=== PATIENT | female | born 1965 | race Caucasian/White ===

== ENCOUNTER 2021-04-28 09:24 | Emergency (ER) | payer OTHER | END 2021-04-28 13:25 | disposition home or self-care (01) | LOC: ERS 09:24 | DX: S32.019A Unspecified fracture of first lumbar vertebra, initial encounter for closed fracture (principal); S32.029A Unspecified fracture of second lumbar vertebra, initial encounter for closed fracture; S32.049A Unspecified fracture of fourth lumbar vertebra, initial encounter for closed fracture; S32.059A Unspecified fracture of fifth lumbar vertebra, initial encounter for closed fracture; I10 Essential (primary) hypertension; J44.9 Chronic obstructive pulmonary disease, unspecified; F17.210 Nicotine dependence, cigarettes, uncomplicated; Z85.038 Personal history of other malignant neoplasm of large intestine; W17.2XXA Fall into hole, initial encounter | CPT/HCPCS: 72131; 72192; 96372; J1885; J2270 ==

== ENCOUNTER 2022-01-11 13:34 | Emergency (ER) | payer OTHER ==
[2022-01-11 14:26] LABS: #Eosinphils 0.1 thou/uL (0.0-0.7); #Lymphocytes 1.7 thou/uL (1.20-3.40); #Monocytes 0.8 thou/uL (0.11-0.59); %Basophils 0.4 % (0.0-1.0); %Eosinophils 0.9 % (0.0-10.0); %Lymphocytes 13.1 % (21.0-51.0); %Monocytes 6.5 % (0.0-10.0); Hemoglobin 13.6 g/dL (12.0-16.0); Mean Corpuscular HGB CONC 32.8 g/dL (32.0-36.0); Mean Corpuscular Hemoglobin 34.4 pg (27.0-31.0); Mean Platelet Volume 5.7 fL (7.4-10.4); Platelet Count 363 thou/uL (130-400); RBC Distribution Width 12.2 % (11.5-14.5); Red Blood Cell (RBC) Count 3.94 mill/uL (4.20-5.40); White Blood Cell (WBC) Count 12.7 thou/uL (4.8-10.8)
[2022-01-11] MEDS ORDERED: Ketorolac Tromethamine 30 MG/ML VIAL ONE (14:41)
[2022-01-11] MEDS ORDERED: Ondansetron PF 4 MG/2 ML Vial ONE (14:41)
[2022-01-11 14:49] LABS: ALT (SGPT) 27 U/L (8-55); AST (SGOT) 17 U/L (5-34); Albumin 3.4 g/dL (3.5-5.0); Alkaline Phosphatase 59 U/L (40-110); Anion Gap 13 mmol/L (10-20); BUN (Urea Nitrogen) 15 mg/dL (9.8-20.1); Bilirubin, Total 0.2 mg/dL (0.2-1.2); Calc. Creatinine Clearance 0 mL/min (70-130); Calcium 8.3 mg/dL (7.8-10.44); Carbon Dioxide 22 mmol/L (22-29); Chloride 105 mmol/L (98-107); Globulin 3.5 g/dL (2.4-3.5); Glucose 132 mg/dL (70-105); Potassium 3.3 mmol/L (3.5-5.1); Protein, Total 6.9 g/dL (6.0-8.3); Sodium 137 mmol/L (136-145)
[2022-01-11] MEDS ORDERED: HYDROcodone/Acetaminophen 10/325 mg Tablet ONE (16:23)
== END 2022-01-11 17:15 | disposition home or self-care (01) ==
LOC: ERS 13:34
DX: S32.011A Stable burst fracture of first lumbar vertebra, initial encounter for closed fracture (principal); S00.81XA Abrasion of other part of head, initial encounter; S00.31XA Abrasion of nose, initial encounter; S40.212A Abrasion of left shoulder, initial encounter; L03.211 Cellulitis of face; L03.114 Cellulitis of left upper limb; I10 Essential (primary) hypertension; J44.9 Chronic obstructive pulmonary disease, unspecified; F17.210 Nicotine dependence, cigarettes, uncomplicated; Z79.51 Long term (current) use of inhaled steroids; Z79.899 Other long term (current) drug therapy; W10.9XXA Fall (on) (from) unspecified stairs and steps, initial encounter; Y92.039 Unspecified place in apartment as the place of occurrence of the external cause
CPT/HCPCS: 36415; 70450; 70486; 71045; 72131; 80053; 85025; 96374; 96375; J1885; J2405

== ENCOUNTER 2022-08-19 10:51 | Outpatient (CLI) | payer OTHER | END 2022-08-19 10:52 | disposition home or self-care (01) | LOC: BICMAMMO 10:51 | PROVIDERS: ATTEND Family Medicine | DX: Z12.31 Encounter for screening mammogram for malignant neoplasm of breast (principal); Z85.3 Personal history of malignant neoplasm of breast; Z85.41 Personal history of malignant neoplasm of cervix uteri; Z85.42 Personal history of malignant neoplasm of other parts of uterus; Z85.43 Personal history of malignant neoplasm of ovary; Z80.3 Family history of malignant neoplasm of breast; Z98.890 Other specified postprocedural states | CPT/HCPCS: 77067 ==

== ENCOUNTER 2023-10-22 15:01 | Outpatient (CLI) | payer OTHER | END 2023-10-22 15:02 | disposition home or self-care (01) | LOC: BICMAMMO 15:01 | PROVIDERS: ATTEND Family Medicine | DX: Z13.820 Encounter for screening for osteoporosis (principal); M81.0 Age-related osteoporosis without current pathological fracture | CPT/HCPCS: 77080 ==

== ENCOUNTER 2024-07-03 06:51 | Outpatient (CLI) | payer OTHER ==
[2024-07-03] MEDS ORDERED: Sodium Bicarbonate 0.5 MEQ/ML SDV 10 ML ONE (07:45)
[2024-07-03] MEDS ORDERED: Lidocaine 1% PF 5 ML VIAL ONE (07:45)
[2024-07-03] MEDS ORDERED: Iopamidol 370 76% 100 ML VIAL ONE (10:47)
== END 2024-07-03 06:52 | disposition home or self-care (01) ==
LOC: SPEC 06:51
PROVIDERS: ATTEND Internal Medicine Gastroenterology
DX: R93.3 Abnormal findings on diagnostic imaging of other parts of digestive tract (principal); R11.2 Nausea with vomiting, unspecified; R10.9 Unspecified abdominal pain; R19.4 Change in bowel habit
CPT/HCPCS: 36415; 36569; 74178; 76937; 77001; 82565; C1751; Q9967

== ENCOUNTER 2024-07-05 06:33 | Day surgery (SDC) | payer OTHER ==
[2024-07-04 11:16] VITALS: BMI 30.4
[2024-07-05] MEDS ORDERED: Benzocaine 20% Spray 60 ML CAN ONE (08:15)
[2024-07-05] MEDS ORDERED: PROPOFOL 200 MG/20 ML VIAL ONE (08:34)
== END 2024-07-05 09:20 | disposition home or self-care (01) ==
LOC: SDC 06:33
PROVIDERS: ATTEND Internal Medicine Gastroenterology
PROC: 0DB68ZX Excision of Stomach, Via Natural or Artificial Opening Endoscopic, Diagnostic (ICD-10-PCS; principal; 2024-07-05)
DX: K29.50 Unspecified chronic gastritis without bleeding (principal); K44.9 Diaphragmatic hernia without obstruction or gangrene; J44.9 Chronic obstructive pulmonary disease, unspecified; I10 Essential (primary) hypertension; Z85.43 Personal history of malignant neoplasm of ovary; Z90.710 Acquired absence of both cervix and uterus; Z90.49 Acquired absence of other specified parts of digestive tract; Z90.89 Acquired absence of other organs; Z85.3 Personal history of malignant neoplasm of breast; Z85.038 Personal history of other malignant neoplasm of large intestine; Z98.890 Other specified postprocedural states; Z90.11 Acquired absence of right breast and nipple; F17.200 Nicotine dependence, unspecified, uncomplicated; Z79.899 Other long term (current) drug therapy; Z91.030 Bee allergy status; Z91.038 Other insect allergy status
CPT/HCPCS: 88305; J2704

== ENCOUNTER 2024-07-17 13:35 | Outpatient (CLI) | payer OTHER | END 2024-07-17 13:36 | disposition home or self-care (01) | LOC: SCSMRI 13:35 | PROVIDERS: ATTEND Specialist | DX: R42 Dizziness and giddiness (principal); I67.82 Cerebral ischemia; R90.82 White matter disease, unspecified | CPT/HCPCS: 70553; 76376 ==

== ENCOUNTER 2024-09-13 05:54 | Day surgery (SDC) | payer OTHER ==
[2024-09-12 13:35] VITALS: BMI 28.3
[2024-09-13] MEDS ORDERED: Bupivacaine PF 0.5% 30 ML VIAL ONE (06:08)
[2024-09-13] MEDS ORDERED: EPINEPHrine 1 MG/ML VIAL ONE (06:08)
[2024-09-13] MEDS ORDERED: Thrombin 5000 UNITS/5 ML VIAL ONE (06:08)
[2024-09-13] MEDS ORDERED: PROPOFOL 20 ML ONE (06:18)
[2024-09-13] MEDS ORDERED: fentaNYL PF 100 MCG/2 ML SYRINGE ONE ×2 (06:18→09:32)
[2024-09-13] MEDS ORDERED: Lidocaine 1% PF 5 ML VIAL ONE (06:19)
[2024-09-13] MEDS ORDERED: Rocuronium Bromide 10 MG/ML (10ML VIAL) ONE (06:19)
[2024-09-13] MEDS ORDERED: Midazolam HCl 2 mg/2 ml Vial ONE ×2 (06:47→09:00)
[2024-09-13] MEDS ORDERED: CEFAZOLIN 2 GM VIAL ONE ×2 (06:47→13:30)
[2024-09-13] MEDS ORDERED: PHENYLEPHRINE-NS 100 MCG/ML 10 ML SYRINGE ONE (07:56)
[2024-09-13] MEDS ORDERED: Sterile Water 10 ML ONE (08:04)
[2024-09-13] MEDS ORDERED: Ondansetron PF 4 MG/2 ML Vial ONE (08:12)
[2024-09-13] MEDS ORDERED: Dexamethasone 20 MG/5 ML VIAL ONE (08:12)
[2024-09-13] MEDS ORDERED: SUGAMMADEX SODIUM 200 MG/2 ML VIAL ONE (08:36)
[2024-09-13] MEDS ORDERED: fentaNYL 50 mcg/mL 1 mL Vial ONE ×5 (08:48→12:49)
[2024-09-13] MEDS ORDERED: MINERAL OIL/WHITE PETROLATUM 3.5 GM TUBE ONE (08:49)
[2024-09-13] MEDS ORDERED: HYDROmorphone 2 MG/ML VIAL ONE (08:56)
[2024-09-13] MEDS ORDERED: oxyCODONE 5 MG TAB ONE (09:15)
[2024-09-13] MEDS ORDERED: Midazolam HCl 2 mg/ml Syrup 5 ml UD Cup ONE (09:17)
[2024-09-13] MEDS ORDERED: Sodium Chloride 0.9% 100 ML ONE (13:30)
== END 2024-09-13 14:42 | disposition home or self-care (01) ==
LOC: SDC 05:54
PROVIDERS: ATTEND Neurological Surgery
PROC: 01NB0ZZ Release Lumbar Nerve, Open Approach (ICD-10-PCS; principal; 2024-09-13)
DX: M54.16 Radiculopathy, lumbar region (principal); I10 Essential (primary) hypertension; J44.9 Chronic obstructive pulmonary disease, unspecified; F17.200 Nicotine dependence, unspecified, uncomplicated; Z85.038 Personal history of other malignant neoplasm of large intestine; Z90.710 Acquired absence of both cervix and uterus; Z90.49 Acquired absence of other specified parts of digestive tract; Z91.048 Other nonmedicinal substance allergy status; Z88.8 Allergy status to other drugs, medicaments and biological substances; Z79.51 Long term (current) use of inhaled steroids; Z79.899 Other long term (current) drug therapy
CPT/HCPCS: J0171; J0665; J1100; J2250; J2405; J2704; J3010

== ENCOUNTER 2024-09-20 12:38 | Outpatient (CLI) | payer OTHER | END 2024-09-20 12:39 | disposition home or self-care (01) | LOC: BICMAMMO 12:38 | PROVIDERS: ATTEND Family Medicine | DX: Z12.31 Encounter for screening mammogram for malignant neoplasm of breast (principal); Z80.3 Family history of malignant neoplasm of breast; Z85.3 Personal history of malignant neoplasm of breast; Z85.41 Personal history of malignant neoplasm of cervix uteri; Z85.42 Personal history of malignant neoplasm of other parts of uterus; Z85.43 Personal history of malignant neoplasm of ovary; Z98.890 Other specified postprocedural states | CPT/HCPCS: 77067 ==

== ENCOUNTER 2024-10-15 11:04 | Inpatient (IN) | payer OTHER ==
[2024-10-15 11:41] LABS: #Basophils 0.04 10x3/uL (0.0-0.2); #Eosinophils Less than 0.03 10x3/uL (0.0-0.7); %Basophils 0.2 % (0.0-1.0); %Lymphocytes 2.2 % (21.0-51.0); %Monocytes 2.1 % (0.0-10.0); %Neutrophils 94.6 % (42.0-75.0); Hematocrit 44.8 % (36.0-47.0); Hemoglobin 15.9 g/dL (12.0-16.0); Mean Corpuscular HGB CONC 35.5 g/dL (32.0-36.0); Mean Corpuscular Hemoglobin 35.2 pg (27.0-31.0); Mean Corpuscular Volume 99.1 fL (78.0-98.0); Mean Platelet Volume 8.9 fL (7.4-10.4); Platelet Count 306 10x3/uL (130-400); RBC Distribution Width 12.3 % (11.5-14.5); Red Blood Cell (RBC) Count 4.52 mill/uL (4.20-5.40)
[2024-10-15 11:54] LABS: ALT (SGPT) 10 U/L (8-55); AST (SGOT) 20 U/L (5-34); Albumin 3.5 g/dL (3.4-4.8); Alkaline Phosphatase 78 U/L (40-110); Anion Gap 20 mmol/L (10-20); BUN (Urea Nitrogen) 88 mg/dL (9.8-20.1); Bilirubin, Total 0.4 mg/dL (0.2-1.2); Calc. Creatinine Clearance 0 mL/min (70-130); Carbon Dioxide 28 mmol/L (23-31); Chloride 92 mmol/L (98-107); Estimated GFR 12; Globulin 5.8 g/dL (2.4-3.5); Glucose 179 mg/dL (80-115); Lipase 129 U/L (8-78); Potassium 3.5 mmol/L (3.5-5.1); Protein, Total 9.3 g/dL (5.8-8.1); Sodium 136 mmol/L (136-145)
[2024-10-15] MEDS ORDERED: Morphine 4 MG/ML VIAL ONE (12:00)
[2024-10-15] MEDS ORDERED: Ondansetron PF 4 MG/2 ML Vial ONE ×3 (12:00→13:37)
[2024-10-15] MEDS ORDERED: Sodium Chloride 0.9% 100 ML ONE (13:08)
[2024-10-15] MEDS ORDERED: Piperacillin/Tazobactam 3.375 GM VIAL ONE (13:09)
[2024-10-15] MEDS ORDERED: Morphine 2 MG/ML VIAL ONE (13:36)
[2024-10-15] MEDS ORDERED: Lidocaine 2% PF 5 ML VIAL ONE (13:37)
[2024-10-15] MEDS ORDERED: Dexamethasone 4 mg/ml Vial ONE (13:37)
[2024-10-15] MEDS ORDERED: Rocuronium Bromide 10 MG/ML (10ML VIAL) ONE ×2 (13:37→15:52)
[2024-10-15] MEDS ORDERED: SUCCINYLCHOLINE/SOD CL,ISO/PF 200 MG/10 ML SYRINGE FS ONE ×2 (13:37→15:52)
[2024-10-15] MEDS ORDERED: PROPOFOL 20 ML ONE (13:38)
[2024-10-15] MEDS ORDERED: Fentanyl 250 MCG/5 ML VIAL ONE (13:38)
[2024-10-15] MEDS ORDERED: Morphine 2 MG/ML VIAL SLOW IVP PRN ×2 (13:46→17:45)
[2024-10-15] MEDS ORDERED: Ondansetron PF 4 MG/2 ML Vial IVP PRN (13:46)
[2024-10-15] MEDS ORDERED: Lactated Ringer's 1,000 ML IV SCH (14:00)
[2024-10-15] MEDS ORDERED: Vancomycin (BATCH) 1.25 GM in Premix 1 BAG IVPB SCH (14:00)
[2024-10-15] MEDS ORDERED: Vancomycin (BATCH) 1.25 GM/250 ML BAG ONE (14:35)
[2024-10-15] MEDS ORDERED: Albumin 5% 500 ML ONE (14:44)
[2024-10-15] MEDS ORDERED: Lidocaine 1% MPF 2 ML VIAL ONE (14:51)
[2024-10-15] MEDS ORDERED: KETAMINE 100 MG/ML (5ML VIAL) ONE (16:03)
[2024-10-15] MEDS ORDERED: EPINEPHrine 1 MG/ML VIAL ONE (16:07)
[2024-10-15] MEDS ORDERED: Heparin 10,000 UNITS/ 10 ML VIAL ONE (16:07)
[2024-10-15] MEDS ORDERED: Bupivacaine 0.25% HCL 30 ML VIAL ONE (16:08)
[2024-10-15] MEDS ORDERED: Midazolam HCl 2 mg/2 ml Vial ONE (16:13)
[2024-10-15] MEDS ORDERED: Vasopressin 20 UNITS/ML VIAL ONE (16:15)
[2024-10-15] MEDS ORDERED: PHENYLEPHRINE-NS 100 MCG/ML 10 ML SYRINGE ONE (16:23)
[2024-10-15] MEDS ORDERED: Piperacillin/Tazobactam 3.375 GM in Sodium Chloride 0.9% 100 ML IVPB SCH (17:00)
[2024-10-15] MEDS ORDERED: ePHEDrine Sulfate 50 MG/10 ML VIAL ONE ×2 (17:12→17:13)
[2024-10-15] MEDS ORDERED: FENTANYL 500 MCG/10 ML VIAL 2,000 MCG in Sodium Chloride 0.9% 60 ML IV PRN (17:28)
[2024-10-15] MEDS ORDERED: Ventilator Sedation Protocol 1 EACH FS SCH (17:30)
[2024-10-15] MEDS ORDERED: Fentanyl BOLUS 250 ML IVPB PRN (17:45)
[2024-10-15] MEDS ORDERED: DISCONTINUE PREVIOUS NARCOTIC PAIN MEDICATIONS AND BENZODIAZEPINES FS SCH (17:45)
[2024-10-15] MEDS ORDERED: Lorazepam 2 MG/ML VIAL SLOW IVP PRN (17:45)
[2024-10-15] MEDS ORDERED: Propofol 1,000 MG/100 ML VIAL IV PRN (17:45)
[2024-10-15] MEDS ORDERED: Propofol BOLUS 1,000 MG/100 ML VIAL IV PRN (17:45)
[2024-10-15] MEDS: Sodium Chloride 0.9% 1,000 ML IV SCH (18:13)
[2024-10-15 18:24] LABS: Actual Bicarbonate (HCO3a) 22.1 mEq/L (22-28); Base Excess (BEa) -2.9 mEq/L (-2.0 to +3.0); CO2 Tension 39.5 mmHg (35.0-45.0); Calcium, Ionized (arterial) 0.99 mmol/L (1.12-1.30); Carboxyhemoglobin (COHb) 1.1 gm% (0.0-3.0); Hematocrit-ABG 39 % (36.0-47.0); Hemoglobin (Hb) 13.2 g/dL (12.0-16.0); O2 Tension (PaO2), arterial 71.6 mmHg (> 80.0); Potassium - ABG Lab 3.27 mmol/L (3.70-5.30); pH, Arterial 7.366 (7.35-7.45)
[2024-10-15] MEDS: Albumin 25% 25 GM (100 mL) BOT IVPB SCH (18:29)
[2024-10-15 18:30] LABS: ALV-art Gradient 235.525 mmHg (0-20); Puncture Site Left Brachial artery
[2024-10-15] MEDS ORDERED: Ipratropium/Albuterol 3 ML NEB NEB SCH (18:30)
[2024-10-15] MEDS: Ipratropium/Albuterol 3 ML NEB NEB SCH (18:32)
[2024-10-15] MEDS: Mometasone 200 MCG/Formoterol 5 MCG 120 PUFF INHALER INH SCH (18:32)
[2024-10-15] MEDS: Sodium Chloride 0.45% 1,000 ML IV SCH ×2 (19:25→20:19)
[2024-10-15] MEDS: Piperacillin/Tazobactam 3.375 GM in Sodium Chloride 0.9% 100 ML IVPB SCH (19:32)
[2024-10-15] MEDS ORDERED: Famotidine/PF 20 mg/2ml Vial SLOW IVP SCH (21:00)
[2024-10-15] MEDS ORDERED: Piperacillin/Tazobactam 2.25 GM in Sodium Chloride 0.9% 100 ML IVPB SCH (22:00)
[2024-10-15] MEDS: Fentanyl CADD 100 ML IV SCH (23:11)
[2024-10-16 05:27] LABS: #Basophils 0.03 10x3/uL (0.0-0.2); #Eosinophils Less than 0.03 10x3/uL (0.0-0.7); %Basophils 0.3 % (0.0-1.0); %Eosinophils 0.1 % (0.0-10.0); %Lymphocytes 5.8 % (21.0-51.0); %Monocytes 5.5 % (0.0-10.0); %Neutrophils 88.1 % (42.0-75.0); Hematocrit 33.4 % (36.0-47.0); Hemoglobin 11.3 g/dL (12.0-16.0); Mean Corpuscular HGB CONC 33.8 g/dL (32.0-36.0); Mean Corpuscular Hemoglobin 35.4 pg (27.0-31.0); Mean Corpuscular Volume 104.7 fL (78.0-98.0); Mean Platelet Volume 9.2 fL (7.4-10.4); Platelet Count 230 10x3/uL (130-400); RBC Distribution Width 12.4 % (11.5-14.5); Red Blood Cell (RBC) Count 3.19 mill/uL (4.20-5.40)
[2024-10-16 05:38] LABS: INR-International Normal Ratio 1.2; Prothrombin Time 14.8 sec (12.0-14.7)
[2024-10-16 05:39] LABS: PTT 31.5 sec (22.9-36.1)
[2024-10-16 05:50] LABS: Phosphorus 3.5 mg/dL (2.3-4.7)
[2024-10-16 05:54] LABS: Anion Gap 17 mmol/L (10-20); BUN (Urea Nitrogen) 60 mg/dL (9.8-20.1); Calc. Creatinine Clearance 24 mL/min (70-130); Calcium 7.6 mg/dL (7.8-10.44); Carbon Dioxide 23 mmol/L (23-31); Chloride 108 mmol/L (98-107); Estimated GFR 20; Glucose 130 mg/dL (80-115); Magnesium 2.3 mg/dL (1.6-2.6); Potassium 3.6 mmol/L (3.5-5.1); Sodium 144 mmol/L (136-145)
[2024-10-16] MEDS ORDERED: Heparin 5,000 UNITS/ML VIAL SC SCH (09:00)
[2024-10-16] MEDS: Enoxaparin 30 MG (0.3 mL) SYRINGE SC SCH (09:22)
[2024-10-16] MEDS ORDERED: Electrolyte Replacement Protocol 1 EACH FS ONE (15:31)
[2024-10-16 16:46] LABS: Anion Gap 14 mmol/L (10-20); BUN (Urea Nitrogen) 49 mg/dL (9.8-20.1); Calc. Creatinine Clearance 33 mL/min (70-130); Calcium 7.9 mg/dL (7.8-10.44); Carbon Dioxide 25 mmol/L (23-31); Chloride 107 mmol/L (98-107); Estimated GFR 29; Glucose 100 mg/dL (80-115); Potassium 3.1 mmol/L (3.5-5.1); Sodium 143 mmol/L (136-145)
[2024-10-16] MEDS: Morphine 2 MG/ML VIAL SLOW IVP PRN (16:46)
[2024-10-16] MEDS ORDERED: Electrolyte Replacement Protocol 1 EACH FS PRN (16:54)
[2024-10-16] MEDS: Potassium Chloride 20 MEQ in Premix 1 BAG IVPB SCH (17:12)
[2024-10-16] MEDS: Pantoprazole 40 MG DR.TAB PO SCH (22:32)
[2024-10-17 06:13] LABS: #Basophils Less than 0.03 10x3/uL (0.0-0.2); %Basophils 0.2 % (0.0-1.0); %Eosinophils 0.3 % (0.0-10.0); %Lymphocytes 9.6 % (21.0-51.0); %Monocytes 6.2 % (0.0-10.0); %Neutrophils 83.2 % (42.0-75.0); Hemoglobin 11.1 g/dL (12.0-16.0); Mean Corpuscular HGB CONC 34.7 g/dL (32.0-36.0); Mean Corpuscular Hemoglobin 35.6 pg (27.0-31.0); Mean Corpuscular Volume 102.6 fL (78.0-98.0); Platelet Count 188 10x3/uL (130-400); RBC Distribution Width 12.5 % (11.5-14.5); Red Blood Cell (RBC) Count 3.12 mill/uL (4.20-5.40)
[2024-10-17 06:45] LABS: ALT (SGPT) 8 U/L (8-55); AST (SGOT) 18 U/L (5-34); Albumin 3.2 g/dL (3.4-4.8); Alkaline Phosphatase 45 U/L (40-110); Anion Gap 12 mmol/L (10-20); BUN (Urea Nitrogen) 40 mg/dL (9.8-20.1); Bilirubin, Total 0.7 mg/dL (0.2-1.2); Calc. Creatinine Clearance 44 mL/min (70-130); Calcium 8.6 mg/dL (7.8-10.44); Carbon Dioxide 27 mmol/L (23-31); Chloride 106 mmol/L (98-107); Estimated GFR 40; Globulin 2.9 g/dL (2.4-3.5); Glucose 84 mg/dL (80-115); Magnesium 2.1 mg/dL (1.6-2.6); Phosphorus 2.1 mg/dL (2.3-4.7); Potassium 3.3 mmol/L (3.5-5.1); Protein, Total 6.1 g/dL (5.8-8.1); Sodium 142 mmol/L (136-145)
[2024-10-17] MEDS ORDERED: Potassium Chloride 20 MEQ TAB PO SCH (08:00)
[2024-10-17] MEDS: Potassium Chloride 20 MEQ in Premix 1 BAG IVPB SCH (09:25)
[2024-10-18 04:12] LABS: #Basophils 0.03 10x3/uL (0.0-0.2); %Basophils 0.3 % (0.0-1.0); %Eosinophils 0.6 % (0.0-10.0); %Monocytes 5.2 % (0.0-10.0); %Neutrophils 82.4 % (42.0-75.0); Hematocrit 33.2 % (36.0-47.0); Hemoglobin 11.5 g/dL (12.0-16.0); Mean Corpuscular HGB CONC 34.6 g/dL (32.0-36.0); Mean Corpuscular Hemoglobin 35.2 pg (27.0-31.0); Mean Corpuscular Volume 101.5 fL (78.0-98.0); Mean Platelet Volume 9.2 fL (7.4-10.4); Platelet Count 210 10x3/uL (130-400); RBC Distribution Width 12.3 % (11.5-14.5); Red Blood Cell (RBC) Count 3.27 mill/uL (4.20-5.40)
[2024-10-18 04:34] LABS: ALT (SGPT) 7 U/L (8-55); AST (SGOT) 18 U/L (5-34); Albumin 2.9 g/dL (3.4-4.8); Alkaline Phosphatase 62 U/L (40-110); Anion Gap 16 mmol/L (10-20); BUN (Urea Nitrogen) 29 mg/dL (9.8-20.1); Bilirubin, Total 0.8 mg/dL (0.2-1.2); Calc. Creatinine Clearance 57 mL/min (70-130); Calcium 8.9 mg/dL (7.8-10.44); Carbon Dioxide 23 mmol/L (23-31); Chloride 108 mmol/L (98-107); Estimated GFR 54; Globulin 3.4 g/dL (2.4-3.5); Glucose 74 mg/dL (80-115); Phosphorus 2.3 mg/dL (2.3-4.7); Potassium 3.2 mmol/L (3.5-5.1); Protein, Total 6.3 g/dL (5.8-8.1); Sodium 144 mmol/L (136-145)
[2024-10-18] MEDS: Potassium Chloride 20 MEQ TAB PO SCH (08:59)
[2024-10-18] MEDS: Magnesium 2 GM/50 ML(in water) 2 GM in Premix 1 BAG IVPB SCH (08:59)
[2024-10-18] MEDS: dilTIAZem CD 180 MG CAP PO SCH (09:02)
[2024-10-18] MEDS: Sodium Chloride 0.45% 1,000 ML IV SCH (13:06)
[2024-10-18] MEDS: Piperacillin/Tazobactam 3.375 GM in Sodium Chloride 0.9% 100 ML IVPB SCH (14:26)
[2024-10-19 07:21] LABS: #Basophils Less than 0.03 10x3/uL (0.0-0.2); %Basophils 0.2 % (0.0-1.0); %Eosinophils 1.2 % (0.0-10.0); %Lymphocytes 10.8 % (21.0-51.0); %Monocytes 5.7 % (0.0-10.0); %Neutrophils 80.6 % (42.0-75.0); Hematocrit 31.8 % (36.0-47.0); Hemoglobin 10.8 g/dL (12.0-16.0); Mean Corpuscular Hemoglobin 34.7 pg (27.0-31.0); Mean Corpuscular Volume 102.3 fL (78.0-98.0); Platelet Count 230 10x3/uL (130-400); RBC Distribution Width 12.5 % (11.5-14.5); Red Blood Cell (RBC) Count 3.11 mill/uL (4.20-5.40)
[2024-10-19 07:32] LABS: Anion Gap 16 mmol/L (10-20); BUN (Urea Nitrogen) 17 mg/dL (9.8-20.1); Calc. Creatinine Clearance 61 mL/min (70-130); Calcium 8.4 mg/dL (7.8-10.44); Carbon Dioxide 21 mmol/L (23-31); Chloride 108 mmol/L (98-107); Estimated GFR 63; Glucose 68 mg/dL (80-115); Potassium 3.2 mmol/L (3.5-5.1); Sodium 142 mmol/L (136-145)
[2024-10-19] MEDS: Enoxaparin 40 MG (0.4 mL) SYRINGE SC SCH (08:21)
[2024-10-19] MEDS: Potassium Chloride 20 MEQ TAB PO SCH (08:21)
[2024-10-19] MEDS: Lorazepam 2 MG/ML VIAL SLOW IVP SCH (09:04)
[2024-10-19] MEDS: Benzocaine/Menthol 1 LOZ LOZ PO PRN (13:48)
[2024-10-19 15:04] VITALS: BMI 28.5
[2024-10-20 03:43] LABS: Anion Gap 11 mmol/L (10-20); BUN (Urea Nitrogen) 11 mg/dL (9.8-20.1); Calc. Creatinine Clearance 64 mL/min (70-130); Carbon Dioxide 21 mmol/L (23-31); Chloride 111 mmol/L (98-107); Estimated GFR 66; Glucose 91 mg/dL (80-115); Potassium 3.2 mmol/L (3.5-5.1); Sodium 140 mmol/L (136-145)
[2024-10-20] MEDS: Potassium Chloride 20 MEQ in Premix 1 BAG IVPB SCH (04:24)
[2024-10-20] MEDS ORDERED: Potassium Chloride 20 MEQ in Premix 1 BAG IVPB SCH (08:00)
[2024-10-20] MEDS: Potassium Chloride 40 MEQ in Dextrose 5%-Lactated Ringers 1,000 ML IV SCH (09:09)
[2024-10-21 06:49] LABS: Hematocrit 30.7 % (36.0-47.0); Hemoglobin 10.3 g/dL (12.0-16.0); Mean Corpuscular HGB CONC 33.6 g/dL (32.0-36.0); Mean Corpuscular Hemoglobin 34.8 pg (27.0-31.0); Mean Corpuscular Volume 103.7 fL (78.0-98.0); Mean Platelet Volume 9.2 fL (7.4-10.4); Platelet Count 272 10x3/uL (130-400); RBC Distribution Width 12.7 % (11.5-14.5); Red Blood Cell (RBC) Count 2.96 mill/uL (4.20-5.40)
[2024-10-21 07:05] LABS: Anion Gap 12 mmol/L (10-20); BUN (Urea Nitrogen) 8 mg/dL (9.8-20.1); Calc. Creatinine Clearance 74 mL/min (70-130); Calcium 8.2 mg/dL (7.8-10.44); Carbon Dioxide 21 mmol/L (23-31); Chloride 111 mmol/L (98-107); Estimated GFR 76; Glucose 114 mg/dL (80-115); Potassium 3.8 mmol/L (3.5-5.1); Sodium 140 mmol/L (136-145)
[2024-10-21] MEDS ORDERED: Ibuprofen 800 MG TAB PO PRN (08:16)
[2024-10-21] MEDS ORDERED: traMADol HCl 50 MG TAB PO PRN (08:17)
[2024-10-21] MEDS ORDERED: Non-Formulary Item 1 EACH (Lisinopril/Hydrochlorothiazide [Lisinopril-Hctz 20-12.5 Mg Tab PO SCH (09:00)
[2024-10-21] MEDS: Hydrochlorothiazide 25 MG TAB PO SCH (09:12)
[2024-10-21] MEDS: Lisinopril 20 MG TAB PO SCH (09:12)
[2024-10-21 11:28] VITALS: BP 122/81; TEMP 97.8
[2024-10-21] MEDS ORDERED: Iopamidol-370 76% 500 ML MDV (1 ML CHARGE) ONE (12:00)
[2024-10-21] MEDS: tiZANidine HCl 4 MG TAB PO PRN (12:54)
== END 2024-10-21 14:10 | disposition home or self-care (01) | DRG 335 ==
LOC: ERS 11:04 → SDC 13:55 → CCU 17:41 → SURG B 10-16 18:39
PROVIDERS: ADMIT Specialist; ATTEND Specialist
PROC: 0DN80ZZ Release Small Intestine, Open Approach (ICD-10-PCS; principal; 2024-10-15)
DX: K56.50 Intestinal adhesions [bands], unspecified as to partial versus complete obstruction (principal); R65.11 Systemic inflammatory response syndrome (SIRS) of non-infectious origin with acute organ dysfunction; K91.89 Other postprocedural complications and disorders of digestive system; N17.9 Acute kidney failure, unspecified; K66.8 Other specified disorders of peritoneum; J44.9 Chronic obstructive pulmonary disease, unspecified; Z90.49 Acquired absence of other specified parts of digestive tract; Z90.710 Acquired absence of both cervix and uterus; Z98.890 Other specified postprocedural states; Z79.899 Other long term (current) drug therapy; F17.210 Nicotine dependence, cigarettes, uncomplicated; Z91.048 Other nonmedicinal substance allergy status; Z88.8 Allergy status to other drugs, medicaments and biological substances; E83.52 Hypercalcemia; N18.30 Chronic kidney disease, stage 3 unspecified; I12.9 Hypertensive chronic kidney disease with stage 1 through stage 4 chronic kidney disease, or unspecified chronic kidney disease; E87.6 Hypokalemia; K56.7 Ileus, unspecified; D64.9 Anemia, unspecified; E86.1 Hypovolemia
CPT/HCPCS: 36415; 36600; 71045; 74176; 74177; 80048; 80053; 82805; 83605; 83690; 83735; 84100; 85025; 85027; 85610; 85730; 87040; 93005; 93010; 94002; 94003; 94640; 96361; 96365; 96375; 96376; A4314; C1751; C1776; J0171; J0665; J1100; J1644; J1650; J2060; J2250; J2270; J2272; J2405; J2543; J2704; J3010; J3370; J3475; J3480; J7030; J7620; P9045; P9047; Q9967

== ENCOUNTER 2024-11-17 10:27 | Day surgery (SDC) | payer OTHER ==
[2024-11-16 09:08] VITALS: BMI 25.7
[2024-11-17] MEDS ORDERED: PROPOFOL 40 ML ONE (12:49)
[2024-11-17] MEDS ORDERED: GLYCOPYRROLATE/PF 0.2 MG/ML VIAL ONE (12:50)
[2024-11-17] MEDS ORDERED: Lidocaine 1% PF 5 ML VIAL ONE (12:50)
[2024-11-17] MEDS ORDERED: PHENYLEPHRINE-NS 100 MCG/ML 10 ML SYRINGE ONE ×2 (13:53→14:10)
[2024-11-17] MEDS ORDERED: ePHEDrine Sulfate 50 MG/10 ML VIAL ONE (14:03)
== END 2024-11-17 14:50 | disposition home or self-care (01) ==
LOC: SDC 10:27
PROVIDERS: ATTEND Internal Medicine Gastroenterology
PROC: 0DJD8ZZ Inspection of Lower Intestinal Tract, Via Natural or Artificial Opening Endoscopic (ICD-10-PCS; principal; 2024-11-17)
PROC: 0DJ08ZZ Inspection of Upper Intestinal Tract, Via Natural or Artificial Opening Endoscopic (ICD-10-PCS; principal; 2024-11-17)
DX: K21.9 Gastro-esophageal reflux disease without esophagitis (principal); R68.81 Early satiety; R63.4 Abnormal weight loss; C18.9 Malignant neoplasm of colon, unspecified; J44.9 Chronic obstructive pulmonary disease, unspecified; I10 Essential (primary) hypertension; M81.0 Age-related osteoporosis without current pathological fracture; Z90.49 Acquired absence of other specified parts of digestive tract; Z90.11 Acquired absence of right breast and nipple; Z90.710 Acquired absence of both cervix and uterus; Z98.890 Other specified postprocedural states; Z79.899 Other long term (current) drug therapy; Z85.3 Personal history of malignant neoplasm of breast; F17.200 Nicotine dependence, unspecified, uncomplicated; Z88.8 Allergy status to other drugs, medicaments and biological substances; Z91.048 Other nonmedicinal substance allergy status; Z85.038 Personal history of other malignant neoplasm of large intestine; Z15.09 Genetic susceptibility to other malignant neoplasm; Z98.0 Intestinal bypass and anastomosis status
CPT/HCPCS: J2704; J3490